=== PATIENT | female | born 1960 ===

== ENCOUNTER 2022-08-15 06:22 | Day surgery (SDC) | payer OTHER | END 2022-08-15 11:35 | disposition home or self-care (01) | LOC: AMB-ENDOS 06:22 | PROVIDERS: ATTEND Colon & Rectal Surgery | DX: D12.3 Benign neoplasm of transverse colon (principal); D12.2 Benign neoplasm of ascending colon; Z86.010 Personal history of colon polyps; K64.8 Other hemorrhoids; Z20.822 Contact with and (suspected) exposure to COVID-19 ==